=== PATIENT | male | born 1990 | race Caucasian/White ===

== ENCOUNTER 2016-11-28 21:37 | Emergency (ER) | payer SELFPAY ==
--- NOTE | 2016-11-28 21:59 | PDOC ---
History of Present Illness - General History Source: Patient Exam Limitations: No Limitations - History of Present Illness Initial Comments: 11/28/16 21:59 The patient is a 26 year old male with no significant past medical history, who presents to the ED via EMS with lower back pain. Patient was at the gym doing squats when he felt a stretch in his lower back. Patient describes the pain as 5/10 in severity. Patient states he is unable to walk or sit up without pain. Patient has been lying supine since leaving the gym. Patient states he was given 4x advil by EMS. Patient denies fever, chills, nausea, vomiting, diarrhea. Patient denies dysuria , frequency, hematuria. <Johan Durham - Last Filed: 11/28/16 21:59> <Hugo Koroma - Last Filed: 11/28/16 22:50> - General Chief Complaint: Back Pain Stated Complaint: RIGHT LOWER BACK PAIN Time Seen by Provider: 11/28/16 21:59 Past History <Johan Durham - Last Filed: 11/28/16 21:59> - Psycho/Social/Smoking Cessation Hx Anxiety: No Suicidal Ideation: No Smoking History: Never smoked Hx Alcohol Use: No Drug/Substance Use Hx: No Substance Use Type: None <Hugo Koroma - Last Filed: 11/28/16 22:50> - Past Medical History Allergies/Adverse Reactions: Allergies Allergy/AdvReac Type Severity Reaction Status Date / Time No Known Allergies Allergy Verified 11/28/16 21:47 Home Medications: Ambulatory Orders Cyclobenzaprine HCl [Flexeril 10 mg] 10 mg PO TID PRN #30 tablet MDD 6 11/28/16 Ondansetron [Zofran *Odt*] 8 mg SL TID #30 od.tablet 11/28/16 Oxycodone HCl/Acetaminophen [Percocet 5-325 mg Tablet] 1 - 2 tab PO Q6H #20 tab MDD 6 11/28/16 Review of Systems - Review of Systems Able to Perform ROS?: Yes Comments:: 11/28/16 21:59 GENERAL/CONSTITUTIONAL: No fever or chills. No weakness. HEAD, EYES, EARS, NOSE AND THROAT: No change in vision. No ear pain or discharge. No sore throat. CARDIOVASCULAR: No chest pain or shortness of breath. RESPIRATORY: No cough, wheezing, or hemoptysis. GASTROINTESTINAL: No nausea, vomiting, diarrhea or constipation. GENITOURINARY: No dysuria, frequency, or change in urination. MUSCULOSKELETAL: + back pain. No joint or muscle swelling or pain. No neck pain. SKIN: No rash NEUROLOGIC: No headache, vertigo, loss of consciousness, or change in strength/ sensation. ENDOCRINE: No increased thirst. No abnormal weight change. HEMATOLOGIC/LYMPHATIC: No anemia, easy bleeding, or history of blood clots. ALLERGIC/IMMUNOLOGIC: No hives or skin allergy. <Johan Durham - Last Filed: 11/28/16 21:59> *Physical Exam - Vital Signs Last Vital Signs Temp Pulse Resp BP Pulse Ox 98.1 F 72 15 118/66 100 11/28/16 21:46 11/28/16 21:46 11/28/16 21:46 11/28/16 21:46 11/28/16 21:46 - Physical Exam Comments: 11/28/16 22:00 GENERAL: Awake, alert, and fully oriented, in no acute distress HEAD: No signs of trauma EYES: PERRLA, EOMI, sclera anicteric, conjunctiva clear ENT: Auricles normal inspection, hearing grossly normal, nares patent, oropharynx clear without exudates. Moist mucosa NECK: Normal ROM, supple, no lymphadenopathy, JVD, or masses LUNGS: Breath sounds equal, clear to auscultation bilaterally. No wheezes, and no crackles BACK: Paraspinal muscle spasms, right side more than left. No motor sensory deficits. no bony tenderness. No point tenderness. HEART: Regular rate and rhythm, normal S1 and S2, no murmurs, rubs or gallops ABDOMEN: Soft, nontender, normoactive bowel sounds. No guarding, no rebound. No masses EXTREMITIES: Normal range of motion, no edema. No clubbing or cyanosis. No cords, erythema, or tenderness NEUROLOGICAL: Cranial nerves II through XII grossly intact. Normal speech, normal gait SKIN: Warm, Dry, normal turgor, no rashes or lesions noted. <Johan Durham - Last Filed: 11/28/16 21:59> - Vital Signs Last Vital Signs Temp Pulse Resp BP Pulse Ox 98.1 F 72 15 118/66 100 11/28/16 21:46 11/28/16 21:46 11/28/16 21:46 11/28/16 21:46 11/28/16 21:46 <Hugo Koroma - Last Filed: 11/28/16 22:50> *DC/Admit/Observation/Transfer - Attestations Scribe Attestion: 11/28/16 22:01 Documentation prepared by Johan Durham, acting as medical stenographer for Hugo Koroma MD. <Johan Durham - Last Filed: 11/28/16 21:59> - Discharge Dispostion Admit: No - Attestations Physician Attestion: 11/28/16 21:59 I, Dr. Hugo Koroma, attest that this document has been prepared under my direction and personally reviewed by me in its entirety. I further attest, that it accurately reflects all work, treatment, procedures and medical decision -making performed by me. <Hugo Koroma - Last Filed: 11/28/16 22:50> Diagnosis at time of Disposition: Strain of lumbar region Qualifiers: Encounter type: initial encounter Qualified Code(s): S39.012A - Strain of muscle, fascia and tendon of lower back, initial encounter - Discharge Dispostion Disposition: HOME Condition at time of disposition: Improved - Prescriptions Prescriptions: Cyclobenzaprine HCl [Flexeril 10 mg] 10 mg PO TID PRN #30 tablet MDD 6 PRN Reason: Pain Oxycodone HCl/Acetaminophen [Percocet 5-325 mg Tablet] 1 - 2 tab PO Q6H #20 tab MDD 6 Ondansetron [Zofran *Odt*] 8 mg SL TID #30 od.tablet - Patient Instructions Printed Discharge Instructions: DI for Low Back Pain Additional Instructions: Cristino- Sorry this happened to you. Return to us if worse in any way. Rest and NO LIFTING until your doctor says you can return to exercise. Sleep flat on your back with your knees bent.... one or two pillows under your knees. Follow up with your doctor later this week. Use the medicines only for unbearable pain, otherwise take motrin for mild pain. Hope you are feeling better in a few days..... Best- Dr. Hugo Koroma
[2016-11-28] MEDS ORDERED: ONDANSETRON *ODT* 4 MG TABLET ONE (22:05)
[2016-11-28] MEDS ORDERED: diazePAM 5 MG TABLET ONE (22:06)
[2016-11-28] MEDS ORDERED: ONDANSETRON *ODT* 4 MG TABLET SL ONE (22:09)
[2016-11-28] MEDS ORDERED: diazePAM 5 MG TABLET PO ONE (22:09)
[2016-11-28 22:23] VITALS: BP 118/66; PULSE 72; TEMP 98.1; BMI 26.9
== END 2016-11-28 23:30 | disposition home or self-care (01) ==
LOC: FER 21:37
DX: S39.012A Strain of muscle, fascia and tendon of lower back, initial encounter (principal); X50.0XXA Overexertion from strenuous movement or load, initial encounter; Y93.A9 Activity, other involving cardiorespiratory exercise; Y92.39 Other specified sports and athletic area as the place of occurrence of the external cause
CPT/HCPCS: 72100-TC; 99282-25